=== PATIENT | male | born 1995 | race American Indian/Alaskan Native ===

== ENCOUNTER 2017-05-07 23:44 | Emergency (ER) | payer OTHER ==
[2017-05-08 00:47] LABS: Basophils # (Auto) 0.1 K/mm3 (0.0-0.1); Basophils % (Auto) 0.6 % (0.0-1.8); Hematocrit 51.7 % (35.5-45.6); Hemoglobin 17.5 gm/dl (11.8-15.2); Lymphocytes # (Auto) 1.8 K/mm3 (1.2-5.4); Lymphocytes % (Auto) 16.2 % (13.4-35.0); Mean Corpuscular HGB Conc 34 % (32-34); Mean Corpuscular Hemoglobin 27 pg (28-32); Mean Corpuscular Volume 81 fl (84-94); Monocytes # (Auto) 0.6 K/mm3 (0.0-0.8); Monocytes % (Auto) 5.5 % (0.0-7.3); Platelet Count 323 K/mm3 (140-440); Red Cell Distribution Width 13.4 % (13.2-15.2)
[2017-05-08 01:02] LABS: BUN/Creatinine Ratio 18; Blood Urea Nitrogen 16 mg/dL (9-20); Calcium 10.6 mg/dL (8.4-10.2); Hemolysis Index 27
[2017-05-08 03:01] LABS: Bilirubin,Urine NEG (Negative); Blood,Urine NEG (Negative); Color,Urine Yellow (Yellow); Mucus,Urine 2+ /HPF
[2017-05-08 03:16] LABS: Amphetamine Screen,Urine PRESUMPTIVE NEGATIVE; Benzodiazepines Screen,Urine PRESUMPTIVE NEGATIVE; Cocaine Screen,Urine PRESUMPTIVE NEGATIVE; Methadone Screen,Urine PRESUMPTIVE NEGATIVE; Opiate Screen,Urine PRESUMPTIVE NEGATIVE
[2017-05-08 03:28] LABS: Cannabinoid Screen,Urine PRESUMPTIVE POSITIVE
--- NOTE | 2017-05-08 06:35 | Emergency Department Report ---
ED Psych HPI - General Chief Complaint: Psych Stated Complaint: ALTERED MENTAL STATUS Time Seen by Provider: 05/08/17 06:28 Source: patient, family Mode of arrival: Ambulatory - History of Present Illness Initial Comments: According to the triage note the patient was "not acting right". There is no family present to provide me any detail concerning the patient's behavior. Upon my encounter he was distracted and not communicating recently. He seems to have loose associations and a very distant stare. He was standing in the seclusion room and not interacting with security guards. He did allow physical exam. Reviewing our previous records I found no previous mental health history or medical history. Therefore I decided that a CT examination of the patient's head was indicated. He was given Geodon and Ativan and this did facilitate his workup. MD Complaint: other Quality: constant Improves With: none Worsens With: none Context: other (unknown substance abuse was suspected by family) - Related Data Home Medications Medication Instructions Recorded Confirmed Last Taken Unobtainable 05/08/17 05/08/17 Unknown Allergies Allergy/AdvReac Type Severity Reaction Status Date / Time Unable to Assess Allergy Unverified 05/08/17 00:26 ED Review of Systems ROS: Stated complaint: ALTERED MENTAL STATUS Other details as noted in HPI Comment: Unobtainable due to pts medical conditions ED Past Medical Hx - Past Medical History Additional medical history: unknown - Surgical History Additional Surgical History: unknown - Social History Smoking Status: Unknown if ever smoked Substance Use Type: Other - Medications Home Medications: Home Medications Medication Instructions Recorded Confirmed Last Taken Type Unobtainable 05/08/17 05/08/17 Unknown History ED Physical Exam - General Limitations: No Limitations, Altered Mental Status General appearance: alert, in no apparent distress - Head Head exam: Present: atraumatic, normocephalic - Eye Eye exam: Present: normal appearance - ENT ENT exam: Present: mucous membranes moist - Neck Neck exam: Present: normal inspection. Absent: tenderness, meningismus - Respiratory Respiratory exam: Present: normal lung sounds bilaterally. Absent: respiratory distress - Cardiovascular Cardiovascular Exam: Present: regular rate, normal rhythm. Absent: systolic murmur, diastolic murmur, rubs, gallop - GI/Abdominal GI/Abdominal exam: Present: soft, normal bowel sounds. Absent: distended, tenderness, guarding, rebound, rigid - Rectal Rectal exam: Present: deferred - Extremities Exam Extremities exam: Present: normal inspection - Back Exam Back exam: Present: normal inspection - Neurological Exam Neurological exam: Present: altered, CN II-XII intact. Absent: motor sensory deficit - Psychiatric Psychiatric exam: Present: flat affect - Skin Skin exam: Present: warm, dry, intact, normal color. Absent: rash ED Course Vital Signs 05/08/17 05/08/17 00:08 00:23 Temperature 98.4 F Pulse Rate 108 H 61 Respiratory 18 17 Rate Blood Pressure 126/78 126/78 O2 Sat by Pulse 100 99 Oximetry - Reevaluation(s) Reevaluation #1: After receiving Geodon and Ativan the patient became conversant. He still was acting somewhat bizarrely. He told me he wanted to speak to the doctor after I told him that I was the doctor. He did admit to some paranoid ideation. He was somewhat defensive about the possibility of experiencing hallucinosis. He states that he has not been eating or drinking well over the last 4 days. His labs were consistent with volume depletion. He was given IV fluids. He did eat. He was drinking adequately. He stated that he was prescribed some sort of mental health medication when he was in fourth grade. I discussed the patient's case with the mental health counselor (Jenna). She agreed that the patient required 1013 and placement. Forms have been executed. 05/08/17 13:08 ED Medical Decision Making - Lab Data Result diagrams: 05/08/17 00:30 05/08/17 00:30 Laboratory Results - last 24 hr 05/08/17 05/08/17 05/08/17 00:30 00:30 00:30 WBC RBC Hgb Hct MCV MCH MCHC RDW Plt Count Lymph % (Auto) Wilkin % (Auto) Eos % (Auto) Baso % (Auto) Lymph # Wilkin # Eos # Baso # Seg Neutrophils % Seg Neutrophils # Sodium 143 Potassium 4.0 Chloride 97.4 L Carbon Dioxide 23 Anion Gap 27 BUN 16 Creatinine 0.9 Estimated GFR > 60 BUN/Creatinine Ratio 18 Glucose 106 H Calcium 10.6 H Urine Color Urine Turbidity Urine pH Ur Specific [place] Urine Protein Urine Glucose (UA) Urine Ketones Urine Blood Urine Nitrite Urine Bilirubin Urine Urobilinogen Ur Leukocyte Esterase Urine WBC (Auto) Urine RBC (Auto) Urine Mucus Salicylates < 0.3 L Urine Opiates Screen Urine Methadone Screen Acetaminophen < 15.0 Ur Barbiturates Screen Ur Phencyclidine Scrn Ur Amphetamines Screen U Benzodiazepines Scrn Urine Cocaine Screen U Marijuana (THC) Screen Drugs of Abuse Note Plasma/Serum Alcohol 05/08/17 05/08/17 05/08/17 00:30 00:30 Unknown WBC 11.3 H RBC 6.40 H Hgb 17.5 H Hct 51.7 H MCV 81 L MCH 27 L MCHC 34 RDW 13.4 Plt Count 323 Lymph % (Auto) 16.2 Wilkin % (Auto) 5.5 Eos % (Auto) 0.0 Baso % (Auto) 0.6 Lymph # 1.8 Wilkin # 0.6 Eos # 0.0 Baso # 0.1 Seg Neutrophils % 77.7 H Seg Neutrophils # 8.8 H Sodium Potassium Chloride Carbon Dioxide Anion Gap BUN Creatinine Estimated GFR BUN/Creatinine Ratio Glucose Calcium Urine Color Yellow Urine Turbidity Clear Urine pH 6.0 Ur Specific [place] 1.033 H Urine Protein 30 mg/dl Urine Glucose (UA) Neg Urine Ketones 20 Urine Blood Neg Urine Nitrite Neg Urine Bilirubin Neg Urine Urobilinogen 2.0 Ur Leukocyte Esterase Neg Urine WBC (Auto) 1.0 Urine RBC (Auto) 2.0 Urine Mucus 2+ Salicylates Urine Opiates Screen Urine Methadone Screen Acetaminophen Ur Barbiturates Screen Ur Phencyclidine Scrn Ur Amphetamines Screen U Benzodiazepines Scrn Urine Cocaine Screen U Marijuana (THC) Screen Drugs of Abuse Note Plasma/Serum Alcohol < 0.01 05/08/17 Unknown WBC RBC Hgb Hct MCV MCH MCHC RDW Plt Count Lymph % (Auto) Wilkin % (Auto) Eos % (Auto) Baso % (Auto) Lymph # Wilkin # Eos # Baso # Seg Neutrophils % Seg Neutrophils # Sodium Potassium Chloride Carbon Dioxide Anion Gap BUN Creatinine Estimated GFR BUN/Creatinine Ratio Glucose Calcium Urine Color Urine Turbidity Urine pH Ur Specific [place] Urine Protein Urine Glucose (UA) Urine Ketones Urine Blood Urine Nitrite Urine Bilirubin Urine Urobilinogen Ur Leukocyte Esterase Urine WBC (Auto) Urine RBC (Auto) Urine Mucus Salicylates Urine Opiates Screen Presumptive negative Urine Methadone Screen Presumptive negative Acetaminophen Ur Barbiturates Screen Presumptive negative Ur Phencyclidine Scrn Presumptive negative Ur Amphetamines Screen Presumptive negative U Benzodiazepines Scrn Presumptive negative Urine Cocaine Screen Presumptive negative U Marijuana (THC) Screen Presumptive positive Drugs of Abuse Note Disclamer Plasma/Serum Alcohol Laboratory Results - last 24 hr 05/08/17 05/08/17 05/08/17 00:30 00:30 00:30 WBC RBC Hgb Hct MCV MCH MCHC RDW Plt Count Lymph % (Auto) Wilkin % (Auto) Eos % (Auto) Baso % (Auto) Lymph # Wilkin # Eos # Baso # Seg Neutrophils % Seg Neutrophils # Sodium 143 Potassium 4.0 Chloride 97.4 L Carbon Dioxide 23 Anion Gap 27 BUN 16 Creatinine 0.9 Estimated GFR > 60 BUN/Creatinine Ratio 18 Glucose 106 H Calcium 10.6 H Urine Color Urine Turbidity Urine pH Ur Specific [place] Urine Protein Urine Glucose (UA) Urine Ketones Urine Blood Urine Nitrite Urine Bilirubin Urine Urobilinogen Ur Leukocyte Esterase Urine WBC (Auto) Urine RBC (Auto) Urine Mucus Salicylates < 0.3 L Urine Opiates Screen Urine Methadone Screen Acetaminophen < 15.0 Ur Barbiturates Screen Ur Phencyclidine Scrn Ur Amphetamines Screen U Benzodiazepines Scrn Urine Cocaine Screen U Marijuana (THC) Screen Drugs of Abuse Note Plasma/Serum Alcohol 05/08/17 05/08/17 05/08/17 00:30 00:30 Unknown WBC 11.3 H RBC 6.40 H Hgb 17.5 H Hct 51.7 H MCV 81 L MCH 27 L MCHC 34 RDW 13.4 Plt Count 323 Lymph % (Auto) 16.2 Wilkin % (Auto) 5.5 Eos % (Auto) 0.0 Baso % (Auto) 0.6 Lymph # 1.8 Wilkin # 0.6 Eos # 0.0 Baso # 0.1 Seg Neutrophils % 77.7 H Seg Neutrophils # 8.8 H Sodium Potassium Chloride Carbon Dioxide Anion Gap BUN Creatinine Estimated GFR BUN/Creatinine Ratio Glucose Calcium Urine Color Yellow Urine Turbidity Clear Urine pH 6.0 Ur Specific [place] 1.033 H Urine Protein 30 mg/dl Urine Glucose (UA) Neg Urine Ketones 20 Urine Blood Neg Urine Nitrite Neg Urine Bilirubin Neg Urine Urobilinogen 2.0 Ur Leukocyte Esterase Neg Urine WBC (Auto) 1.0 Urine RBC (Auto) 2.0 Urine Mucus 2+ Salicylates Urine Opiates Screen Urine Methadone Screen Acetaminophen Ur Barbiturates Screen Ur Phencyclidine Scrn Ur Amphetamines Screen U Benzodiazepines Scrn Urine Cocaine Screen U Marijuana (THC) Screen Drugs of Abuse Note Plasma/Serum Alcohol < 0.01 05/08/17 Unknown WBC RBC Hgb Hct MCV MCH MCHC RDW Plt Count Lymph % (Auto) Wilkin % (Auto) Eos % (Auto) Baso % (Auto) Lymph # Wilkin # Eos # Baso # Seg Neutrophils % Seg Neutrophils # Sodium Potassium Chloride Carbon Dioxide Anion Gap BUN Creatinine Estimated GFR BUN/Creatinine Ratio Glucose Calcium Urine Color Urine Turbidity Urine pH Ur Specific [place] Urine Protein Urine Glucose (UA) Urine Ketones Urine Blood Urine Nitrite Urine Bilirubin Urine Urobilinogen Ur Leukocyte Esterase Urine WBC (Auto) Urine RBC (Auto) Urine Mucus Salicylates Urine Opiates Screen Presumptive negative Urine Methadone Screen Presumptive negative Acetaminophen Ur Barbiturates Screen Presumptive negative Ur Phencyclidine Scrn Presumptive negative Ur Amphetamines Screen Presumptive negative U Benzodiazepines Scrn Presumptive negative Urine Cocaine Screen Presumptive negative U Marijuana (THC) Screen Presumptive positive Drugs of Abuse Note Disclamer Plasma/Serum Alcohol - Radiology Data Radiology results: report reviewed (CT head within normal limits) Critical care attestation.: If time is entered above; I have spent that time in minutes in the direct care of this critically ill patient, excluding procedure time. ED Disposition Clinical Impression: Acute psychosis, Dehydration Disposition: [id number]/[id number] PSY HOSP/PSY UNIT Is pt being admited?: No Does the pt Need Aspirin: No Condition: Stable Referrals: PRIMARY CARE, [Primary Care Provider] - 3-5 Days Time of Disposition: 13:11
[2017-05-08] MEDS ORDERED: GEODON IM ONE ×2 (06:53→06:54)
[2017-05-08] MEDS ORDERED: ATIVAN IM ONE (06:53)
[2017-05-08] MEDS ORDERED: NACL 0.9% 1000 ML 1,000 ML IV ONE (09:51)
[2017-05-08 10:10] LABS: Creatine Kinase MB 1.4 ng/mL (0.0-4.0)
--- NOTE | 2017-05-08 11:52 | Cat Scan Report ---
CT HEAD WITHOUT CONTRAST: HISTORY: Altered mental status. TECHNIQUE: Sequential 2.5mm CT images. COMPARISON: none. FINDINGS: Cerebral Parenchyma: Within normal limits. Cerebellum: Within normal limits. Brainstem: Within normal limits. Ventricles: Normal. Sella: Normal. Extra-axial spaces: Normal. Basal Cisterns: Normal. Intracranial Hemorrhage: None. Midline Shift: None. Calvarium: Normal. Sinuses: Normal. Mastoid Air Cells: Normal. Visualized Orbits: Normal. IMPRESSION: Cranial CT scan within normal limits.
[2017-05-08] MEDS ORDERED: MILK OF MAGNESIA PO PRN (13:41)
[2017-05-08] MEDS ORDERED: ALUM-MAG HYDROX-SIMETH 200-200-20MG/5ML PO PRN (13:41)
[2017-05-08] MEDS ORDERED: TYLENOL PO PRN (13:41)
[2017-05-08] MEDS: GEODON PO SCH ×2 (16:46→21:32)
--- NOTE | 2017-05-08 20:25 | Cat Scan Report ---
FINAL REPORT PROCEDURE: CT HEAD/BRAIN WO CON TECHNIQUE: Computerized tomography of the head was performed without contrast material. HISTORY: contusion to left side of face COMPARISON: No prior studies are available for comparison. FINDINGS: Skull and scalp: Left periorbital soft tissue swelling. No fracture.. Paranasal sinuses: Normal. Ventricles and subarachnoid spaces: Normal. Cerebrum: No evidence of hemorrhage, acute infarction or mass . Cerebellum and brainstem: No evidence of hemorrhage, acute infarction or mass. Vasculature: Normal. Comments: None. IMPRESSION: No acute intracranial abnormality. Soft tissue swelling.
[2017-05-09] MEDS ORDERED: ATIVAN ONE (10:39)
[2017-05-09] MEDS ORDERED: GEODON IM PRN (10:44)
[2017-05-09] MEDS ORDERED: ATIVAN PO ONE (10:45)
[2017-05-09] MEDS: GEODON PO SCH (10:52)
[2017-05-09] MEDS ORDERED: GEODON PO SCH (11:00)
--- NOTE | 2017-05-09 12:15 | Consultation ---
History of Present Illness - Reason for Consult Consult date: 05/09/17 Reason for consult: Mental Health Evaluation Requesting physician: RENALDO ARANA - Chief Complaint Chief complaint: "Something is in my head" - History of Present Psychiatric Illness 22 y.o. AA male presenting to [facility] for bizarre behavior. Today the patient is calm, but disorganized and delusional during the assessment. He stated that "something" is in his head "physically," but he cannot explain it. He cannot say why he came to the hospital. Most of his answers to questions were not logical. He was observed looking around and pauses with his answer, possible responding to some type of stimuli. He was asked does he feel scared or fearful of something, he stated, "possibly." He could not confirm or deny erratic sleep or a poor appetite. He denies SI/HI's and AVH's. He denies alcohol consumption ( etoh), but admitted to smoking marijuana often. Medications and Allergies Allergies Allergy/AdvReac Type Severity Reaction Status Date / Time Unable to Assess Allergy Unverified 05/08/17 00:26 Home Medications Medication Instructions Recorded Confirmed Last Taken Type Unobtainable 05/08/17 05/08/17 Unknown History Active Meds: Active Medications Acetaminophen (Tylenol) 650 mg PO Q4HR PRN PRN Reason: Pain MILD(1-3)/Fever >100.5/KAMINSKI Al Hydrox/Mg Hydrox/Simethicone (Alum-Mag Hydrox-Simeth [phone]/5ml) 30 ml PO Q4HR PRN PRN Reason: Indigestion Magnesium Hydroxide (Milk Of Magnesia) 30 ml PO Q12HR PRN PRN Reason: Constipation Ziprasidone (Geodon) 40 mg PO BID [facility] Last Admin: 05/09/17 10:52 Dose: 40 mg Ziprasidone (Geodon) 10 mg IM Q12H PRN PRN Reason: Agitation Past psychiatric history - Past Medical History Past Medical History: No medical history Past Surgical History: No surgical history - past Psychiatric treatment and history psychiatric treatment history: The patient denies a psy hx. The patient cannot confirm or deny a fam psy hx. - Social History Social history: Lives alone Mental Status Exam - Vital signs Last Vital Signs Temp 98.9 F 05/08/17 22:00 Pulse 98 H 05/08/17 22:00 Resp 18 05/08/17 22:00 BP 130/90 05/08/17 22:00 Pulse Ox 98 05/08/17 22:00 - Exam Narrative exam: MSE: Appearance: calm, cooperative Behavior: regular eye contact Speech: regular rate and tone Mood: "okay" Affect: flat Thought Process: loose associations Thought Content: denies SI/HI's and AVH's, disorganized, paranoid Motor Activity: ambulatory Cognition: A/O x3 Insight: poor Judgment: poor Results Result Diagrams: 05/08/17 00:30 05/08/17 00:30 All other labs normal. Assessment and Plan Assessment and plan: Impression: Unspecified Psychosis. Cannabis Use DO. Today the patient is calm, but disorganized and delusional during the assessment. The patient is experiencing perceptional disturbances. DDx: R/O Bipolar DO, R/O Schizophrenia, R/O Substance Induced Psychosis Recommendation/Plan: Continue 1013 with placement to inpatient psy services. Start Zyprexa 5 mg PO HS for psychosis. Discussed possible metabolic side effects of Zyprexa with patient.
[2017-05-10 12:31] VITALS: BP 110/74
== END 2017-05-10 11:45 ==
LOC: ED 23:44
DX: F29 Unspecified psychosis not due to a substance or known physiological condition (principal); E86.0 Dehydration
CPT/HCPCS: 36415; 80048; 80307; 81001; 82550; 82553; 85025; 99282; G0480; J3486; J7030; 80320